=== PATIENT | female | born 1990 | race Caucasian/White ===

== ENCOUNTER 2016-12-03 18:49 | Emergency (ER) | payer OTHER ==
[~2016-12-03] VITALS: Ht 167.6 cm; Wt 70.3 kg
--- NOTE | ~2016-12-03 | CT71 ---
[facility] A Service [facility] RADIOLOGY TEXT RESULTS PATIENT: VANESA HUNTER LOCATION: SED : [birth year] UNIT #: [id number] AGE: [address]: Master Montoya MD SEX: F ORDER DR: [id number] [address] [address] [id number] E MR#: [id number] Acc #: [id number] NAME: VANESA HUNTER : 1990 SEX: F STUDY DATE/TIME: 12/03/2016 19:23 UNIT: SED ROOM: STUDY DESCRIPTION: CT Head Wo Contrast Attending Physician: Master Montoya M.D. Ordering Physician: Master Montoya M.D. Primary Care Physician: Jose Ferrer M.D. MEDICAL IMAGING REPORT This report is preliminary unless electronic signature is present. EXAM Head CT no contrast 12/03/2016 INDICTION Fell in the last night, hearing loss on the right, headache, dizziness, confusion intermittently since the accident. Neck pain at the base of the skull. Nose pain. TECHNIQUE Noncontrast CT of the brain was performed. COMPARISON 10/04/[address] exam was performed with one or more of the following radiation dose reduction techniques: automatic exposure control, adjustment of mA and/or kV according to patient size, and iterative reconstruction. FINDINGS CT brain: Sulci and ventricles unremarkable. No midline shift. No evidence of acute intracranial hemorrhage. There is no mass, mass effect or edema to suggest acute infarct and no extraaxial fluid collections are present. The globes are intact. The bones are intact. There is mild ethmoid sinus disease. IMPRESSION 1. Negative noncontrast CT of the brain. 2. Mild ethmoid sinus disease. Dictated by... Peterson Shaw M.D. [facility] A Service [facility] RADIOLOGY TEXT RESULTS PATIENT: VANESA HUNTER LOCATION: SED : [birth year] UNIT #: [id number] AGE: [address]: Master Montoya MD SEX: F ORDER DR: THIS IS AN ELECTRONICALLY VERIFIED REPORT Peterson Shaw M.D. at 12/04/2016 11:44 AM Kike TD: 12/04/2016 08:09 JOB #: [id number] MEDICAL IMAGING REPORT Page 1 of 1
--- NOTE | ~2016-12-03 | CT101 ---
[facility] A Service [facility] RADIOLOGY TEXT RESULTS PATIENT: VANESA HUNTER LOCATION: SED : [birth year] UNIT #: [id number] AGE: [address]: Master Montoya MD SEX: F ORDER DR: [id number] [address] [address] [id number] E MR#: [id number] Acc #: [id number] NAME: VANESA HUNTER : 1990 SEX: F STUDY DATE/TIME: 12/03/2016 19:23 UNIT: SED ROOM: STUDY DESCRIPTION: CT Maxillofacial Area Wo Cont Attending Physician: Master Montoya M.D. Ordering Physician: Master Montoya M.D. Primary Care Physician: Jose Ferrer M.D. MEDICAL IMAGING REPORT This report is preliminary unless electronic signature is present. EXAM CT facial bone series 12/03/2016 INDICATION Fell in the tube last night, right-sided hearing loss, headache, dizziness, confusion intermittently since the accident. Nose pain. Neck pain at the base of the skull. TECHNIQUE AND COMPARISON Noncontrast CT of the facial bones was performed. Coronal reformats performed. This CT exam was performed with one or more of the following radiation dose reduction techniques: Automatic exposure control, adjustment of mA and/or kV according to patient size, and iterative reconstruction. No comparisons. FINDINGS CT FACIAL BONES: No acute fracture identified. Chronic appearing fracture deformity of the nasal bone complexes bilaterally. Mild chronic-appearing ethmoid sinus disease and minimal right maxillary sinus disease. Mandible intact. Orbital floor is intact. No air-fluid level to suggest occult fracture. Chronic-appearing septal deviation to the left. IMPRESSION 1. Chronic-appearing septal deviation to the left. Chronic-appearing nasal bone complex fractures bilaterally. No distinct acute facial bone fracture. 2. Chronic-appearing sinus changes, mild in degree. Dictated by... [facility] A Service [facility] RADIOLOGY TEXT RESULTS PATIENT: VANESA HUNTER LOCATION: SED : [birth year] UNIT #: [id number] AGE: [address]: Master Montoya MD SEX: F ORDER DR: Peterson Shaw M.D. THIS IS AN ELECTRONICALLY VERIFIED REPORT Peterson Shaw M.D. at 12/04/2016 11:46 AM Thomas TD: 12/04/2016 08:09 JOB #: [id number] MEDICAL IMAGING REPORT Page 1 of 1
--- NOTE | ~2016-12-03 | CT52 ---
[facility] A Service [facility] RADIOLOGY TEXT RESULTS PATIENT: VANESA HUNTER LOCATION: SED : [birth year] UNIT #: [id number] AGE: [address]: Master Montoya MD SEX: F ORDER DR: [id number] [address] [address] [id number] E MR#: [id number] Acc #: [id number] NAME: VANESA HUNTER : 1990 SEX: F STUDY DATE/TIME: 12/03/2016 19:49 UNIT: SED ROOM: STUDY DESCRIPTION: CT Cervical Spine Wo Cont Attending Physician: Master Montoya M.D. Ordering Physician: Master Montoya M.D. Primary Care Physician: Jose Ferrer M.D. MEDICAL IMAGING REPORT This report is preliminary unless electronic signature is present. EXAM CT cervical spine without contrast, 12/03/2016 19:49 hours HISTORY 26-year-old woman who fell in the tub last night at home. Patient complains of headache, dizziness, right hearing loss and some intermittent confusion since fall. Right neck pain at base of skull. COMPARISON Cervical spine series, 06/14/2015 TECHNIQUE Axial noncontrasted images were obtained from the skull base to the upper thoracic spine without contrast. Sagittal and coronal reconstructions were performed. Total exam DLP 2431 mGy-cm. This CT exam was performed with one or more of the following radiation dose reduction techniques: automatic exposure control, adjustment of mA and/or kV according to patient size, and iterative reconstruction. FINDINGS Limited views through the posterior fossa are normal. There is no skull base fracture. The mastoid air cells are normal. The ear canals appear normal as do the ossicles. The C1-2 articulation is normal. C2-3 is normal. C3-4 is normal. C4-5 is normal. [facility] A Service [facility] RADIOLOGY TEXT RESULTS PATIENT: VANESA HUNTER LOCATION: SED : [birth year] UNIT #: [id number] AGE: [address]: Master Montoya MD SEX: F ORDER DR: C5-6 is normal. C6-7 is normal. C7-T1 is normal. IMPRESSION Normal cervical spine CT. Dictated by... Clara Manzano M.D. THIS IS AN ELECTRONICALLY VERIFIED REPORT Clara Manzano M.D. at 12/04/2016 8:41 AM LIONEL/alexx TD: 12/04/2016 08:04 JOB #: [id number] MEDICAL IMAGING REPORT Page 1 of 1
[~2016-12-03 18:49] MED LIST: ADDERALL20 MG PO; ALPRAZOLAM PO; BACTRIM DS TABL1 TAB PO; CLINORIL200 M1 PO; FLEXERIL PO; FLEXERIL10 M1 PO; GABAPENTIN600 MG PO; IBUPROFEN600 MG PO; LITHATE20 MG PO; LITHIUM CARBON300 M2 PO; LORTAB 5-325 M1 EACH PO; LORTAB 5/500 TA1 TA1 PO; MEDROL PO; NAPROSYN500 MG PO; NO MEDICATIONS; NORCO 5/325 TAB1 TAB PO; ROBAXIN500 MG PO; SEROQUEL25 MG PO; VICODIN 5/500 T1 TAB PO; VOLTAREN50 MG PO; XANAX2 MG PO
[2016-12-03] MEDS ORDERED: GABAPENTIN800 MG PO (19:08)
[2016-12-03] MEDS ORDERED: PANTOPRAZOLE SO40 MG PO (19:08)
[2016-12-03] MEDS ORDERED: DICYCLOMINE HCL20 MG PO (19:09)
[2016-12-03] MEDS ORDERED: ADDERALL20 MG PO (19:09)
== END 2016-12-03 21:06 | disposition home or self-care (01) ==
LOC: SED 18:49
DX: S00.33XA Contusion of nose, initial encounter (principal); S00.83XA Contusion of other part of head, initial encounter; S13.9XXA Sprain of joints and ligaments of unspecified parts of neck, initial encounter; H60.91 Unspecified otitis externa, right ear; F90.9 Attention-deficit hyperactivity disorder, unspecified type; E03.9 Hypothyroidism, unspecified; I25.10 Atherosclerotic heart disease of native coronary artery without angina pectoris; Z98.51 Tubal ligation status; F17.200 Nicotine dependence, unspecified, uncomplicated; Z79.899 Other long term (current) drug therapy; Z88.0 Allergy status to penicillin; Z88.1 Allergy status to other antibiotic agents; Z88.2 Allergy status to sulfonamides; Z88.8 Allergy status to other drugs, medicaments and biological substances; W18.2XXA Fall in (into) shower or empty bathtub, initial encounter; Y92.009 Unspecified place in unspecified non-institutional (private) residence as the place of occurrence of the external cause
CPT/HCPCS: 70450; 70486; 72125; 99284